=== PATIENT | female | born 2000 | race African-American/Black ===

== ENCOUNTER 2020-07-26 16:08 | Outpatient (CLI) | payer OTHER | END 2020-07-26 16:09 | disposition home or self-care (01) | LOC: CSHMRI 16:08 | PROVIDERS: ATTEND Orthopaedic Surgery | DX: M23.92 Unspecified internal derangement of left knee (principal); S80.02XA Contusion of left knee, initial encounter; M22.42 Chondromalacia patellae, left knee; S86.112A Strain of other muscle(s) and tendon(s) of posterior muscle group at lower leg level, left leg, initial encounter ==